=== PATIENT | male | born 1970 | race Hispanic/Latino ===

== ENCOUNTER 2017-08-21 20:23 | Emergency (ER) | payer SELFPAY ==
[2017-08-21 21:39] LABS: #Basophils 0.1 thou/uL (0.0-0.2); #Eosinphils 0.1 thou/uL (0.0-0.7); #Lymphocytes 3.6 thou/uL (1.20-3.40); #Monocytes 1.2 thou/uL (0.11-0.59); #Neutrophils 4.5 thou/uL (1.40-6.50); %Basophils 0.7 % (0.0-1.0); %Eosinophils 1.1 % (0.0-10.0); %Lymphocytes 37.8 % (21.0-51.0); %Monocytes 12.4 % (0.0-10.0); Hematocrit 47.8 % (42.0-52.0); Macrocytosis SLIGHT = 6-15 cells (100X) (0-5/hpf); Mean Platelet Volume 6.7 fL (7.4-10.4); Red Blood Cell (RBC) Count 4.56 mill/uL (4.70-6.10); White Blood Cell (WBC) Count 9.4 thou/uL (4.8-10.8)
[2017-08-21 21:42] LABS: ALT (SGPT) 27 U/L (8-55); AST (SGOT) 25 U/L (5-34); Alkaline Phosphatase 70 U/L (40-150); Anion Gap 16 mmol/L (10-20); BUN (Urea Nitrogen) 9 mg/dL (8.9-20.6); Bilirubin, Total 0.4 mg/dL (0.2-1.2); Calc. Creatinine Clearance 0 mL/min (70-130); Calcium 9.1 mg/dL (7.8-10.44); Carbon Dioxide 26 mmol/L (22-29); Chloride 99 mmol/L (98-107); Estimated GFR-MDRD 85; Globulin 3.6 g/dL (2.4-3.5)
--- NOTE | 2017-08-21 22:24 | RAD ---
PA AND LATERAL CHEST: Date: 08-21-17 History: Chest pain, body cramping. Comparison: 03-29-10 FINDINGS: Cardiac silhouette and pulmonary vasculature are within normal limits. The lungs remain clear. There has been no interval change from prior study. IMPRESSION: No acute cardiopulmonary process. POS: [facility]
[2017-08-21 23:32] LABS: Acetaminophen Less than 6.0 mcg/mL (10.0-30.0); Salicylate Less than 8.0 mg/dL (15.0-30.0)
[2017-08-21 23:32] LABS: CK (CPK) 221 U/L (30-200); Lipase 14 U/L (8-78)
[2017-08-21] MEDS ORDERED: Ketorolac Tromethamine 30 MG/ML VIAL ONE (23:59)
[2017-08-22 00:30] LABS: Troponin I Less than 0.010 ng/mL (< 0.028)
== END 2017-08-22 00:44 | disposition home or self-care (01) ==
LOC: ERS 20:23
DX: S29.011A Strain of muscle and tendon of front wall of thorax, initial encounter (principal); X50.9XXA Other and unspecified overexertion or strenuous movements or postures, initial encounter; F17.210 Nicotine dependence, cigarettes, uncomplicated
CPT/HCPCS: 36415; 71020; 80053; 80307; 82550; 82553; 83690; 83880; 84484; 85025; 93005; 93010; 96372; J1885

== ENCOUNTER 2020-06-09 20:25 | Emergency (ER) | payer SELFPAY ==
[2020-06-09] MEDS ORDERED: Lidocaine 1% (PF) 30 ML VIAL ONE (20:34)
== END 2020-06-09 20:55 | disposition home or self-care (01) ==
LOC: ERS 20:25
DX: H61.122 Hematoma of pinna, left ear (principal); H93.8X2 Other specified disorders of left ear; F17.210 Nicotine dependence, cigarettes, uncomplicated
CPT/HCPCS: 10160; J2001

== ENCOUNTER 2020-06-12 09:34 | Emergency (ER) | payer SELFPAY | END 2020-06-12 10:46 | disposition home or self-care (01) | LOC: ERS 09:34 | DX: H95.53 Postprocedural seroma of ear and mastoid process following a procedure on the ear and mastoid process (principal); I10 Essential (primary) hypertension; F17.210 Nicotine dependence, cigarettes, uncomplicated | CPT/HCPCS: 99282 ==

== ENCOUNTER 2020-06-14 20:12 | Emergency (ER) | payer SELFPAY ==
[2020-06-14] MEDS ORDERED: HYDROcodone/Acetaminophen 10/325 mg Tablet ONE (20:37)
== END 2020-06-14 21:00 | disposition home or self-care (01) ==
LOC: ERS 20:12
DX: H61.122 Hematoma of pinna, left ear (principal); F17.210 Nicotine dependence, cigarettes, uncomplicated
CPT/HCPCS: 99282

== ENCOUNTER 2021-01-13 20:32 | Emergency (ER) | payer SELFPAY ==
[2021-01-13] MEDS ORDERED: Cyclobenzaprine 10 MG TAB ONE (21:30)
[2021-01-13] MEDS ORDERED: Ketorolac Tromethamine 30 MG/ML VIAL ONE (21:30)
== END 2021-01-13 21:52 | disposition home or self-care (01) ==
LOC: ERS 20:32
DX: M62.838 Other muscle spasm (principal); I10 Essential (primary) hypertension; F17.210 Nicotine dependence, cigarettes, uncomplicated
CPT/HCPCS: 96372; 99283; J1885

== ENCOUNTER 2021-05-22 22:20 | Emergency (ER) | payer SELFPAY ==
[2021-05-23] MEDS ORDERED: HYDROcodone/Acetaminophen 10/325 mg Tablet ONE (04:07)
== END 2021-05-23 04:12 | disposition home or self-care (01) ==
LOC: ERS 22:20
DX: K02.9 Dental caries, unspecified (principal)
CPT/HCPCS: 99282